=== PATIENT | male | born 1970 | race Caucasian/White ===

== ENCOUNTER → 2021-12-25 16:32 | Outpatient (BNVA) | payer BC, SELFPAY | PROVIDERS: PCP Family Medicine; Visit Provider Family Medicine | DX: M54.9 Dorsalgia, unspecified (principal); G89.29 Other chronic pain; F17.200 Nicotine dependence, unspecified, uncomplicated | CPT/HCPCS: 80053; 80061; 85025 ==

== ENCOUNTER 2022-01-03 16:30 | Outpatient (CLI) | payer BC, SELFPAY ==
--- NOTE | 2022-01-03 16:41 | XR_ITS ---
WS: [id number] Lumbar spine, 3 views, 01/03/2022 Clinical Data: back pain Comparison: None. Findings: No compression fractures or subluxation is seen. No disc space narrowing is seen. The transverse proc esses and SI joints are normal. There is osteoarthritic spurring of the vertebral bodies L1-L5. XR/XR lumbar spine 2-3V* 06200 Impression: Osteoarthritis L1-L5.
== END 2022-01-03 16:31 | disposition home or self-care (01) ==
LOC: RAD 16:35
PROVIDERS: PCP Family Medicine; Visit Provider Family Medicine
DX: G89.29 Other chronic pain (principal); M47.816 Spondylosis without myelopathy or radiculopathy, lumbar region
CPT/HCPCS: 72100

== ENCOUNTER → 2024-01-02 10:07 | Outpatient (BNVA) | payer BC, SELFPAY | PROVIDERS: PCP Family Medicine; Visit Provider Family Medicine | DX: K40.90 Unilateral inguinal hernia, without obstruction or gangrene, not specified as recurrent; Z12.5 Encounter for screening for malignant neoplasm of prostate; Z80.42 Family history of malignant neoplasm of prostate | CPT/HCPCS: 80053; 80061; 84153; 85025 ==